=== PATIENT | female | born 1970 | race Caucasian/White ===

== ENCOUNTER → 2017-05-03 | Outpatient (CLI) | payer BC | END | disposition home or self-care (01) | LOC: RADECHMAIN 12:04 | PROVIDERS: ATTEND Family Medicine | DX: R55 Syncope and collapse (principal) | CPT/HCPCS: 93270; 93271 ==

== ENCOUNTER → 2018-04-23 | Outpatient (CLI) | payer BC ==
--- NOTE | 2018-04-23 18:10 | US ---
EXAMINATION TYPE: US carotid duplex BILAT DATE OF EXAM: 04/23/2018 COMPARISON: NONE CLINICAL HISTORY: R41.3 Amnesia. EXAM MEASUREMENTS: RIGHT: Peak Systolic Velocity (PSV) cm/sec ----- Right CCA: 79.8 ----- Right ICA: 73.9 ----- Right ECA: 101.6 ICA/CCA ratio: 0.9 RIGHT: End Diastole cm/sec ----- Right CCA: 23.7 ----- Right ICA: 29.9 ----- Right ECA: 11.3 LEFT: Peak Systolic Velocity (PSV) cm/sec ----- Left CCA: 66.6 ----- Left ICA: 69.3 ----- Left ECA: 73.7 ICA/CCA ratio: 1.0 LEFT: End Diastole cm/sec ----- Left CCA: 19.5 ----- Left ICA: 31. 8 ----- Left ECA: 13.0 VERTEBRALS (direction of flow): Right Vertebral: Antegrade Left Vertebral: Antegrade Rhythm: Normal No significant velocity elevations, no evident atherosclerotic changes. IMPRESSION: There is antegrade flow in the vertebral arteries. The images and measurements suggest c lose to 0% stenosis in both internal carotid arteries. Criteria for Assigning % of Stenosis / Diameter reduction (Estimation based on the indirect measurements of the internal carotid artery velocities (ICA PSV). 1. Normal (no stenosis)=ICA PSV < 125 cm/s: ratio < 2.0: ICA EDV<40 cm/s. 2. Less than 50% stenosis=ICA PSV < 125 cm/s: ratio < 2.0: ICA EDV<40 cm/s. 3. 50 to 69% stenosis=ICA PSV of 125 to 230 cm/s: ration 2.0 ? 4.0: ICA EDV 40-100 cm/s. 4. Greater than 70% stenosis to near occlusion= ICA PSV > 230 cm/s: ratio > 4.0: ICA EDV > 100 cm/s. 5. Near occlusion= ICA PSV velocities may be low or undetectable: variable ratio and ICA EDV. 6. Total occlusion=unable to detect flow.
== END ==
LOC: RADUSWWP 16:54
PROVIDERS: ATTEND Family Medicine
DX: R41.3 Other amnesia (principal)
CPT/HCPCS: 93880

== ENCOUNTER → 2018-05-15 | Outpatient (CLI) | payer BC ==
[2018-05-15 14:09] LABS: HCT 37.9 % (34.0-46.0); HGB 13.1 gm/dL (11.4-16.0); MCH 29.9 pg (25.0-35.0); MCHC 34.6 g/dL (31.0-37.0); MCV 86.4 fL (80.0-100.0); Mean Platelet Volume 6.3; Platelet Count 312 k/uL (150-450); RBC 4.39 m/uL (3.80-5.40); RDW 13.2 % (11.5-15.5); WBC 6.2 k/uL (3.8-10.6)
[2018-05-15 14:10] LABS: Anion Gap 9 mmol/L; Blood Urea Nitrogen 16 mg/dL (7-17); Carbon Dioxide 26 mmol/L (22-30); Chloride 105 mmol/L (98-107); Potassium 4.2 mmol/L (3.5-5.1); Sodium 140 mmol/L (137-145)
== END | disposition home or self-care (01) ==
LOC: LABPAT 13:23
PROVIDERS: ATTEND Internal Medicine Cardiovascular Disease
DX: Z01.812 Encounter for preprocedural laboratory examination (principal); R93.1 Abnormal findings on diagnostic imaging of heart and coronary circulation
CPT/HCPCS: 36415; 80051; 82565; 84520; 85027

== ENCOUNTER → 2024-11-12 | Outpatient (CLI) | payer BC ==
--- NOTE | 2024-11-12 10:12 | MM ---
Reason for Exam: Screening (asymptomatic). Last mammogram was performed 19 year(s) and 7 month(s) ago. Patient History: Menarche at age 10. First Full-Term at age 18. Postmenopausal. Risk Values: Carmella 5 year model risk: 1.1%. NCI Lifetime model risk: 7.2%. Prior Study Comparison: 09/18/2003 Bilateral Screening Mammogram, [facility]. 03/19/2004 Right Special View Mammogram, [facility]. 03/22/2005 Bilateral Diagnostic Mammogram, [facility]. Tissue Density: There are scattered areas of fibroglandular density. Findings: Analyzed By CAD. Right breast: Asymmetry right upper middle depth on MLO view only approximately 6.1 cm from nipple. Left breast: There is no suspicious group of microcalcifications or new suspicious mass. Overall Assessment: Incomplete: need additional imaging evaluation, BI-RAD 0 Management: Diagnostic Mammogram of the right breast. [facility] will attempt to contact patient to return for supplemental views and ultrasound if indicated. Patient should continue monthly self-breast exams. A clinical breast exam by your physician is recommended on an annual basis. This exam should not preclude additional follow-up of suspicious palpable abnormalities. Note on Carmella scores and lifetime risk: 1. A Carmella score greater than 3% is considered moderate risk. If this is the case, consider specialist referral to assess eligibility for a risk reducing agent. 2. If overall lifetime risk for the development of breast cancer is 20% or higher, the patient may qualify for future screening with alternating mammogram and breast MRI. [facility], , 11/12/2024 10:09 AM. Electronically signed and approved by: William Dejesus DO
== END | disposition home or self-care (01) ==
LOC: RADMAMWWP 09:07
PROVIDERS: ATTEND Family Medicine
DX: Z12.31 Encounter for screening mammogram for malignant neoplasm of breast (principal); R92.323 Mammographic fibroglandular density, bilateral breasts; Z78.0 Asymptomatic menopausal state
CPT/HCPCS: 77067

== ENCOUNTER → 2024-11-13 | Outpatient (CLI) | payer BC ==
--- NOTE | 2024-11-13 13:08 | MM ---
Reason for Exam: Additional evaluation requested from abnormal screening. Last screening mammogram was performed less than 1 month ago. Patient History: Menarche at age 10. First Full-Term at age 18. Postmenopausal. Risk Values: Carmella 5 year model risk: 1.1%. NCI Lifetime model risk: 7.2%. Prior Study Comparison: 09/18/2003 Bilateral Screening Mammogram, [facility]. 03/19/2004 Right Special View Mammogram, [facility]. 03/22/2005 Bilateral Diagnostic Mammogram, [facility]. 11/12/2024 Bilateral MG screening mammo w CAD, [facility]. Tissue Density: Right: There are scattered areas of fibroglandular density. Findings: Analyzed By CAD. Area of concern/asymmetry compresses out on spot compression imaging. No suspicious masses, calcifications or distortions. Overall Assessment: Negative, BI-RAD 1 Management: Screening Mammogram of both breasts in 1 year. Results were given to the patient verbally at the time of exam. Patient should continue monthly self-breast exams. A clinical breast exam by your physician is recommended on an annual basis. This exam should not preclude additional follow-up of suspicious palpable abnormalities. Note on Carmella scores and lifetime risk: 1. A Carmella score greater than 3% is considered moderate risk. If this is the case, consider specialist referral to assess eligibility for a risk reducing agent. 2. If overall lifetime risk for the development of breast cancer is 20% or higher, the patient may qualify for future screening with alternating mammogram and breast MRI. [facility], , 11/13/2024 1:01 PM. Electronically signed and approved by: William Dejesus DO
== END | disposition home or self-care (01) ==
LOC: RADMAMWWP 12:30
PROVIDERS: ATTEND Family Medicine
DX: R92.8 Other abnormal and inconclusive findings on diagnostic imaging of breast (principal); R92.321 Mammographic fibroglandular density, right breast; R92.2 Inconclusive mammogram; Z78.0 Asymptomatic menopausal state
CPT/HCPCS: 77061; 77065